=== PATIENT | male | born 1955 | race Two or more races ===

== ENCOUNTER 2024-11-19 19:25 | Inpatient (IN) | payer OTHER ==
[~2024-11-19] VITALS: Ht 177.8 cm; Wt 141.5 kg
--- NOTE | 2024-11-19 19:58 | ED.PDOC ---
History of Present Illness HPI Comments 69-year-old male who came to ER for generalized weakness. History of hypertension, diabetes, end-stage renal disease, on dialysis every Friday, Friday, and Friday. Patient has been generally weak since 5:00 a.m. slid off twice at his bed, and has to be assisted up again. He denies any pain. Patient also complaining of constipation for the past 4 days. On scene patient is saturating 91% on room air, blood sugar of 179, with a blood pressure 164/69 mm Hg. Patient was unable to get his dialysis today because he felt extremely weak. 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 Allergies: Coded Allergies: NO KNOWN ALLERGIES (Unverified , 11/19/24) Information Source: Patient, Emergency Med Personnel Mode of Arrival: EMS Severity: Moderate Timing: Days Duration: Intermittent Past Medical History PAST MEDICAL HISTORY: DM, ESRD, HTN Past Medical History (Other): Dialysis Friday Surgical History: Denies all surgeries Family History Family History: Reviewed,noncontributory to illness Social History Smoker: Non-Smoker Alcohol: Denies ETOH Use Drugs: Denies Drug Use Lives In: Home Constitutional: reports: weakness; denies: chills, diaphoresis, fatigue, fever, malaise, sweats, others EENTM: denies: blurred vision, double vision, ear bleeding, ear discharge, ear drainage, ear pain, ear ringing, eye pain, eye redness, hearing loss, mouth pain, mouth swelling, nasal discharge, nose bleeding, nose congestion, nose pain, photophobia, tearing, throat pain, throat swelling, voice changes, others Respiratory: denies: cough, hemoptysis, orthopnea, SOB at rest, shortness of breath, SOB with excertion, stridor, wheezing, others Cardiovascular: denies: chest pain, dizzy spells, diaphoresis, Dyspnea on exertion, edema, irregular heart beat, left arm pain, lightheadedness, palpitations, PND, syncope, others Gastrointestinal: reports: constipated; denies: abdomen distended, abdominal pain, blood streaked bowels, diarrhea, dysphagia, difficulty swallowing, hematemesis, melena, nausea, poor appetite, poor fluid intake, rectal bleeding, rectal pain, vomiting, others Genitourinary: denies: burning, dysuria, flank pain, frequency, hematuria, incontinence, penile discharge, penile sore, pain, testicle pain, testicle swelling, urgency, others Neurological: denies: dizziness, fainting, headache, left sided numbness, left sided weakness, numbness, paresthesia, pre-existing deficit, right sided numbness, right sided weakness, seizure, speech problems, tingling, tremors, weakness, others Musculoskeletal: denies: back pain, gout, joint pain, joint swelling, muscle pain, muscle stiffness, neck pain, others Integumetry: denies: bruises, change in color, change in hair/nails, dryness, laceration, lesions, lumps, rash, wounds, others Allergic/Immunocompromised: denies: Difficulty Healing, Frequent Infections, Hives, Itching, others Hematologic/Lymphatic: denies: anemia, blood clots, easy bleeding, easy bruising, swollen glands, others Endocrine: denies: excessive hunger, excessive sweating, excessive thirst, excessive urination, flushing, intolerance to cold, intolerance to heat, unexplained weight gain, unexplained weight loss, others Psychiatric: denies: anxiety, bipolar disorder, depression, hopeless, panic disorder, schizophrenia, sleepless, suicidal, others Physical Exam General Appearance: No Apparent Distress, Normal HEENT: Normal ENT Inspection, Pharynx Normal, TMs Normal Neck: Full Range of Motion, Non-Tender, Normal, Normal Inspection Respiratory: Chest Non-Tender, Lungs Clear, No Accessory Muscle Use, No Respiratory Distress, Normal Breath Sounds Cardiovascular: No Edema, No JVD, No Murmur, No Gallop, Normal Peripheral Pulses, Regular Rate/Rhythm Breast Exam: Deferred Gastrointestinal: No Organomegaly, Non Tender, No Pulsatile Mass, Normal Bowel Sounds, Soft Genitalia: Deferred Pelvic: Deferred Rectal: Deferred Extremities: No calf tenderness, Normal capillary refill, Normal inspection, Normal range of motion, Non-tender, No pedal edema Musculoskeletal : Apperance: Normal Neurologic: Alert, manager travel II-XII nml as Tested, No Motor Deficits, Normal Affect, Normal Mood, No Sensory Deficits Cerebellar Function: Normal Reflexes: Normal Skin: Dry, Normal Color, Warm Lymphatic: No Adenopathy Was a procedure done? Was a procedure done?: No Differential Dx Considerations may include: Anemia, electrolyte imbalance, syncope, weakness, dehydration X-Ray, Labs, Meds, VS Vital Signs Date Time Temp Pulse Resp B/P (MAP) Pulse Ox O2 Delivery O2 Flow Rate FiO2 11/19/24 20:45 100.6 77 16 121/62 (81) 99 100.6 11/19/24 20:45 Nasal Cannula* 2 28 11/19/24 19:38 100.6 77 18 164/69 (100) 100.6 Lab Test 11/19/24 20:10 Range/Units White Blood Count 11.7 H 4.4-10.8 10^3/uL Red Blood Count 3.25 L 4.5-5.90 10^6/uL Hemoglobin 11.0 L 13.5-17.5 g/dL Hematocrit 32.7 L 41.0-53.0 % Mean Corpuscular Volume 100.6 H 80.0-100.0 fL Mean Corpuscular Hemoglobin 33.7 H 28.0-32.0 pg Mean Corpuscular Hemoglobin Concent 33.5 32.0-36.0 g/dL Red Cell Distribution Width 15.4 H 11.8-14.3 % Platelet Count 109 L 140-450 10^3/uL Mean Platelet Volume 7.8 6.9-10.8 fL Neutrophils (%) (Auto) 87.2 H 37.0-80.0 % Lymphocytes (%) (Auto) 6.4 L 10.0-50.0 % Monocytes (%) (Auto) 5.6 0.0-12.0 % Eosinophils (%) (Auto) 0.1 0.0-7.0 % Basophils (%) (Auto) 0.7 0.0-2.0 % Neutrophils # (Auto) 10.2 H 1.6-8.6 10 ^3/uL Lymphocytes # (Auto) 0.8 0.4-5.4 10 ^3/uL Monocytes # (Auto) 0.7 0-1.3 10 ^3/uL Eosinophils # (Auto) 0 0-0.8 10 ^3/uL Basophils # (Auto) 0.1 0-0.2 10 ^3/uL Nucleated Red Blood Cells 0.0 % Sodium Level 135 L 136-145 mmol/L Potassium Level 5.4 H 3.5-5.1 mmol/L Chloride Level 94 L 98-107 mmol/L Carbon Dioxide Level 28 20-31 mmol/L Anion Gap 13 5-15 Blood Urea Nitrogen 65 H 9-23 mg/dL Creatinine 12.41 *H 0.700-1.30 mg/dL Glomerular Filtration Rate Calc 4 >90 mL/min BUN/Creatinine Ratio 5.2 L 10.0-20.0 Serum Glucose 204 H 74-106 mg/dL Lactic Acid Level 2.1 *H 0.4-2.0 mmol/L Calcium Level 8.8 8.7-10.4 mg/dL Magnesium Level 2.5 1.6-2.6 mg/dL Total Bilirubin 0.9 0.2-1.0 mg/dL Aspartate Amino Transferase (AST) 9 L 13-40 U/L Alanine Aminotransferase (ALT) 10 7-40 U/L Alkaline Phosphatase 61 46-116 U/L Total Protein 7.0 5.7-8.2 g/dL Albumin 4.2 3.2-4.8 g/dL Lipase 24 12-53 U/L EXAM: XY CHEST PORTABLE TECHNIQUE: Single frontal chest radiograph CLINICAL HISTORY: weakness , SOB COMPARISON: None Findings/Impression: Frontal chest radiograph demonstrates no acute osseous or superficial soft tissue abnormalities. The trachea is midline. The cardiac silhouette and mediastinum are within normal limits. Mild bibasilar atelectasis. No pneumothorax, pleural effusions, or consolidations. Time of 1ST Reevaluation: 19:51 Reevaluation 1ST: Unchanged Patient Education/Counseling: Diagnosis, Treatment Family Education/Counseling: No Family Present Sepsis Sepsis Reasesment Focused Exam Sepsis focused exam: focus exam completed (In the initial resuscitation at least 30 mL/kg of IV crystalloid fluid was NOT given within the first 3 hr due to concerns of fluid overload), time: (2129) Departure 1 Departure Time of Disposition: 22:27 Impression: Primary Impression: Generalized weakness Additional Impressions: ESRD (end stage renal disease) on dialysis Fluid overload Disposition: ADMITTED INPATIENT Admit to: Med Surg Condition: Guarded Critical Care Note Critical Care Time?: Yes (35 min-critical care time only) Critical care comment: Total critical care time: Approximately 36 minutes Due to a high probability of clinically significant, life threatening deterioration, the patient required my highest level of preparedness to intervene emergently and I personally spent this critical care time directly and personally managing the patient. This critical care time included obtaining a history; examining the patient; pulse oximetry; ordering and review of studies; arranging urgent treatment with development of a management plan; evaluation of patient's response to treatment; frequent reassessment; and, discussions with other providers. This critical care time was performed to assess and manage the high probability of imminent, life-threatening deterioration that could result in multi-organ failure. It was exclusive of separately billable procedures and treating other patients. Stability Stability form required: No Heart Score Heart Score: Heart Score Response (Comments) Value History N/A 0 EKG N/A 0 Age N/A 0 Risk Factors N/A 0 Troponin N/A 0 Total 0 I personally scribed for JORGE ANDUJAR MD ([email or web address]) on 11/19/24 at 19:58. Electronically submitted by Issac Macias ([email or web address]). I personally scribed for JORGE ANDUJAR MD ([email or web address]) on 11/19/24 at 21:14. Electronically submitted by Issac Macias ([email or web address]). JORGE ANDUJAR MD Nov 19, 2024 19:58
[2024-11-19 20:33] LABS: Basophils # (auto) 0.1 10 ^3/uL (0-0.2); Basophils % (auto) 0.7 % (0.0-2.0); Eosinophils # (auto) 0 10 ^3/uL (0-0.8); Eosinophils % (auto) 0.1 % (0.0-7.0); Hematocrit 32.7 % (41.0-53.0); Lymphocytes # (auto) 0.8 10 ^3/uL (0.4-5.4); Lymphocytes % (auto) 6.4 % (10.0-50.0); Mean Corpuscular Hemoglobin 33.7 pg (28.0-32.0); Mean Corpuscular Hgb Conc. 33.5 g/dL (32.0-36.0); Mean Corpuscular Volume 100.6 fL (80.0-100.0); Monocytes # (auto) 0.7 10 ^3/uL (0-1.3); Monocytes % (auto) 5.6 % (0.0-12.0); Neutrophils # (auto) 10.2 10 ^3/uL (1.6-8.6); Neutrophils % (auto) 87.2 % (37.0-80.0); Platelet Count (auto) 109 10^3/uL (140-450); Red Blood Cells 3.25 10^6/uL (4.5-5.90); Red Cell Distribution Width 15.4 % (11.8-14.3); White Blood Cell 11.7 10^3/uL (4.4-10.8)
--- NOTE | 2024-11-19 20:36 | DVH ---
EXAM: XY CHEST PORTABLE TECHNIQUE: Single frontal chest radiograph CLINICAL HISTORY: weakness , SOB COMPARISON: None Findings/Impression: Frontal chest radiograph demonstrates no acute osseous or superficial soft tissue abnormalities. The trachea is midline. The cardiac silhouette and mediastinum are within normal limits. Mild bibasilar atelectasis. No pneumothorax, pleural effusions, or consolidations.
[2024-11-19 20:45] LABS: Alanine Aminotransferase 10 U/L (7-40); Albumin 4.2 g/dL (3.2-4.8); Alkaline Phosphatase 61 U/L (46-116); Anion Gap 13 (5-15); BUN/Creatinine Ratio 5.2 (10.0-20.0); Bilirubin, Total 0.9 mg/dL (0.2-1.0); Calcium 8.8 mg/dL (8.7-10.4); Carbon Dioxide 28 mmol/L (20-31); Lipase 24 U/L (12-53); Magnesium 2.5 mg/dL (1.6-2.6)
[2024-11-19 21:07] LABS: Aspartate Aminotransferase 9 U/L (13-40); Blood Urea Nitrogen 65 mg/dL (9-23); Chloride 94 mmol/L (98-107); Glucose 204 mg/dL (74-106); Lactic Acid w/Reflex 2.1 mmol/L (0.4-2.0); Potassium 5.4 mmol/L (3.5-5.1); Sodium 135 mmol/L (136-145)
[2024-11-19] MEDS: PIPERACILLIN-TAZOB 3.375GM 100 ML IV ONE (22:41)
[2024-11-20] MEDS ORDERED: MAALOX PLUS or MAALOX 30 ML PO PRN (01:00)
[2024-11-20] MEDS ORDERED: TEMAZEPAM 15 MG CAP PO PRN (01:00)
[2024-11-20] MEDS ORDERED: DEXTROSE (50%) 50ML SYRG IV PRN (01:00)
[2024-11-20] MEDS ORDERED: ONDANSETRON HCL 4 MG/2 ML VIAL IV PRN (01:00)
--- NOTE | 2024-11-20 01:04 | DVHHP2 ---
History of Present Illness Reason for Visit: weakness History of Present Illness 69-year-old male with a past medical history of diabetes hypertension end-stage renal disease comes to the ED for to stated weakness patient was supposed to have dialysis today but steadily could not go to dialysis due to feeling too weak to go came to the ED for further evaluation and management Renal/: Chronic renal insuff Review of Systems Constitutional: Yes: Fever, Weakness; No: Chills, Sweats, Malaise, Other Eyes: No: Pain, Vision change, Conjunctivae inflammation, Eyelid inflammation, Other, Redness ENT: No: Ear pain, Ear discharge, Nose pain, Nose discharge, Nose congestion, Mouth pain, Mouth swelling, Throat pain, Throat swelling, Other Gastrointestinal: No: Nausea, Vomiting, Abdominal Pain, Diarrhea, Constipation, Melena, Hematochezia, Other Genitourinary: No Dysuria, No Frequency, No Incontinence, No Hematuria, No Retention, No Other Musculoskeletal: No: other, neck pain, shoulder pain, arm pain, back pain, hand pain, leg pain, foot pain Skin: No: Rash, Lesions, Jaundice, Bruising, Other Neurological: Weakness; No: Numbness, Incoordination, Change in speech, Confusion, Seizures, Other Allergies: Coded Allergies: NO KNOWN ALLERGIES (Unverified , 11/19/24) Exam Vital Signs Vital Signs Date Time Temp Pulse Resp B/P (MAP) Pulse Ox O2 Delivery O2 Flow Rate FiO2 11/20/24 00:00 98.6 75 16 143/51 (81) 98 98.6 11/19/24 20:45 Nasal Cannula* 2 28 Exam General Appearance: No Apparent Distress, Normal HEENT: Normal ENT Inspection, Pharynx Normal, TMs Normal Neck: Full Range of Motion, Non-Tender, Normal, Normal Inspection Respiratory: Chest Non-Tender, Lungs Clear, No Accessory Muscle Use, No Respiratory Distress, Normal Breath Sounds Cardiovascular: No Edema, No JVD, No Murmur, No Gallop, Normal Peripheral Pulses, Regular Rate/Rhythm Breast Exam: Deferred Gastrointestinal: No Organomegaly, Non Tender, No Pulsatile Mass, Normal Bowel Sounds, Soft Genitalia: Deferred Pelvic: Deferred Rectal: Deferred Extremities: No calf tenderness, Normal capillary refill, Normal inspection, Normal range of motion, Non-tender, No pedal edema Musculoskeletal : Apperance: Normal Neurologic: Alert, 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, No Motor Deficits, Normal Affect, Normal Mood, No Sensory Deficits Cerebellar Function: Normal Reflexes: Normal Skin: Dry, Normal Color, Warm Lymphatic: No Adenopathy Labs/Xrays Labs Test 11/19/24 22:33 11/19/24 20:10 Range/Units Lactic Acid Level 2.0 0.4-2.0 mmol/L White Blood Count 11.7 H 4.4-10.8 10^3/uL Red Blood Count 3.25 L 4.5-5.90 10^6/uL Hemoglobin 11.0 L 13.5-17.5 g/dL Hematocrit 32.7 L 41.0-53.0 % Mean Corpuscular Volume 100.6 H 80.0-100.0 fL Mean Corpuscular Hemoglobin 33.7 H 28.0-32.0 pg Mean Corpuscular Hemoglobin Concent 33.5 32.0-36.0 g/dL Red Cell Distribution Width 15.4 H 11.8-14.3 % Platelet Count 109 L 140-450 10^3/uL Mean Platelet Volume 7.8 6.9-10.8 fL Neutrophils (%) (Auto) 87.2 H 37.0-80.0 % Lymphocytes (%) (Auto) 6.4 L 10.0-50.0 % Monocytes (%) (Auto) 5.6 0.0-12.0 % Eosinophils (%) (Auto) 0.1 0.0-7.0 % Basophils (%) (Auto) 0.7 0.0-2.0 % Neutrophils # (Auto) 10.2 H 1.6-8.6 10 ^3/uL Lymphocytes # (Auto) 0.8 0.4-5.4 10 ^3/uL Monocytes # (Auto) 0.7 0-1.3 10 ^3/uL Eosinophils # (Auto) 0 0-0.8 10 ^3/uL Basophils # (Auto) 0.1 0-0.2 10 ^3/uL Nucleated Red Blood Cells 0.0 % Sodium Level 135 L 136-145 mmol/L Potassium Level 5.4 H 3.5-5.1 mmol/L Chloride Level 94 L 98-107 mmol/L Carbon Dioxide Level 28 20-31 mmol/L Anion Gap 13 5-15 Blood Urea Nitrogen 65 H 9-23 mg/dL Creatinine 12.41 *H 0.700-1.30 mg/dL Glomerular Filtration Rate Calc 4 >90 mL/min BUN/Creatinine Ratio 5.2 L 10.0-20.0 Serum Glucose 204 H 74-106 mg/dL Calcium Level 8.8 8.7-10.4 mg/dL Magnesium Level 2.5 1.6-2.6 mg/dL Total Bilirubin 0.9 0.2-1.0 mg/dL Aspartate Amino Transferase (AST) 9 L 13-40 U/L Alanine Aminotransferase (ALT) 10 7-40 U/L Alkaline Phosphatase 61 46-116 U/L Total Protein 7.0 5.7-8.2 g/dL Albumin 4.2 3.2-4.8 g/dL Lipase 24 12-53 U/L Assessment/Plan Assessment/Plan admitted to telemetry generalized weakness ESRD with missed dialysis renal evaluation elevated potassium we will need HD elevated white count history of diabetes with elevated glucose Plan discussed with: Patient My Orders Orders - SHARATH SANCHEZ MD Procedure Category Date Status Time *[facility] CONS 11/20/24 Transmitted -[place] 00:47 Admit ADMIT 11/20/24 Transmitted 00:47 Code Status CODE 11/20/24 Transmitted 00:47 Vital Signs [facility] 11/20/24 In Process 00:47 Review Orders With [facility] 11/20/24 In Process Adm. 00:47 Consistent DIET 11/20/24 Transmitted Carb(Ccho)Diabetes Breakfast Lorazepam Tablet [facility] 11/20/24 Logged (Ativan Tablet) 01:00 Alum & Mag PHA 11/20/24 Logged Hydrox-Simethicone 01:00 Docusate Sodium PHA 11/20/24 Logged Capsule (Colace 01:00 Acetaminophen Tablet PHA 11/20/24 Logged (Tylenol Tablet) 01:00 Temazepam (Restoril) PHA 11/20/24 Logged 01:00 Notify Of Changes [facility] 11/20/24 In Process From Base 00:47 Advance Directive [facility] 11/20/24 In Process 00:47 Basic Metabolic Panel LAB 11/20/24 Logged 06:00 Complete Blood Count LAB 11/20/24 Logged 06:00 Patient Condition ORDERS 11/20/24 Transmitted 00:47 Allergies [facility] 11/20/24 In Process 00:47 Ondansetron Hcl PHA 11/20/24 Logged (Zofran) 01:00 Morphine Sulfate PHA 11/20/24 Logged Injection 01:00 Notify Of Changes [facility] 11/20/24 In Process From Base 00:47 Work Station Support Specialist For [facility]A 11/20/24 In Process 24 Hours 00:47 Oxygen By Nasal RT 11/20/24 Transmitted Cannula 00:47 Glucose Blood PHA 11/20/24 Logged (Accu-Chek Comfort 07:00 Insulin R (Human) PHA 11/20/24 Logged (Insulin R) 22:00 Insulin R (Human) PHA 11/20/24 Logged (Insulin R) 07:00 Dextrose 50% Syringe PHA 11/20/24 Transmitted 01:00 Zosyn Extended PHA 11/20/24 Transmitted Infusion 06:00 Date of Service: Nov 20, 2024 Billing Provider: SHARATH SANCHEZ MD Common Visit Codes: [id number] INP/OBS CARE (HIGH) SHARATH SANCHEZ MD Nov 20, 2024 01:04
[2024-11-20] MEDS ORDERED: PIPERACILLIN-TAZOB 3.375GM 100 ML IV SCH (06:00)
[2024-11-20 06:36] LABS: Anion Gap 14 (5-15); Carbon Dioxide 28 mmol/L (20-31)
[2024-11-20 06:38] LABS: Hematocrit 32.6 % (41.0-53.0); Hemoglobin 10.8 g/dL (13.5-17.5); Mean Corpuscular Hemoglobin 33.2 pg (28.0-32.0); Mean Corpuscular Hgb Conc. 33.2 g/dL (32.0-36.0); Mean Corpuscular Volume 99.8 fL (80.0-100.0); Platelet Count (auto) 95 10^3/uL (140-450); Red Blood Cells 3.27 10^6/uL (4.5-5.90); Red Cell Distribution Width 15.4 % (11.8-14.3); White Blood Cell 14.4 10^3/uL (4.4-10.8)
[2024-11-20 06:42] LABS: BUN/Creatinine Ratio 5.7 (10.0-20.0)
[2024-11-20 06:54] LABS: Calcium 8.7 mg/dL (8.7-10.4); Chloride 92 mmol/L (98-107); Sodium 134 mmol/L (136-145)
[2024-11-20 06:56] LABS: Blood Urea Nitrogen 75 mg/dL (9-23); Glucose 211 mg/dL (74-106); Potassium 5.6 mmol/L (3.5-5.1)
[2024-11-20 07:00] LABS: Basophils % (manual) 0 (0.0-2.0); Blast Cells 0; Eosinophils % (manual) 0 (0-7); Metamyelocytes % 0; Myelocytes % 0; Promyelocytes % 0; Reactive Lymphocytes 0
[2024-11-20] MEDS: ACCU-CHEK COMFORT CURVE STRIP VI SCH (07:06)
[2024-11-20] MEDS: InsuLIN REG 1unit/0.01ml Soln (100units/ml) SC SCH ×2 (07:09→22:29)
[2024-11-20] MEDS: SODIUM ZIRCONIUM CYCL 10 GM PAK PO ONE (07:14)
[2024-11-20 08:00] VITALS: PULSE 69; RESP 21; O2SAT 93
[2024-11-20] MEDS: ACETAMINOPHEN 325 MG TAB PO PRN (08:21)
[2024-11-20 08:56] LABS: Band Neutrophils % (manual) 12; Lymphocytes % (manual) 11 (10.0-50.0); Monocytes % (manual) 6 (0-12); Platelet Estimate Decreased
--- NOTE | 2024-11-20 13:05 | DVHINCON2 ---
DATE OF CONSULTATION: 11/20/2024 CONSULTING PHYSICIAN: Jorge L Goldman MD REASON FOR CONSULTATION: Manage dialysis therapy. HISTORY OF PRESENT ILLNESS: The patient is a 69-year-old gentleman who is one of our chronic dialysis patients who came to the hospital after having a couple of falls at home. He says that he was feeling very weak, actually slipped out of his bed, could not really stand up, and missed dialysis treatment yesterday. He denies any chest pain or other symptoms. He is feeling still quite weak but he is mostly at his baseline now. Because he missed his dialysis, blood work in the Emergency Room showed that he was mildly hyperkalemic so I am being consulted to handle his dialysis therapy while he is here. REVIEW OF SYSTEMS: Otherwise unremarkable. PAST MEDICAL HISTORY: Significant for longstanding diabetes, hypertension, obesity, end-stage renal disease, anemia, hyperparathyroidism, hyperlipidemia. SOCIAL HISTORY: He denies smoking cigarettes, drinking alcohol, or using illicit drugs. MEDICATIONS IN THE HOSPITAL: Include insulin, Zosyn, morphine, Zofran, , acetaminophen, and docusate. PHYSICAL EXAMINATION: VITAL SIGNS: Blood pressure is 106/62. Heart rate is 64. Respirations 20. Temperature 99. Apparently, last night, he had a fever of 101.5. GENERAL: The patient is an elderly gentleman who appears to be chronically ill in no acute distress. Alert and oriented x 3. HEENT: Unremarkable. Oral mucosa is pink and moist. NECK: No jugular venous distention or palpable thyroid lymphadenopathy. LUNGS: Diminished entry at the base with a few scattered rhonchi. CARDIOVASCULAR: Regular rate with 1/6 systolic murmur. ABDOMEN: Soft and nontender. Bowel sounds are normal intensity and frequency. EXTREMITIES: No clubbing or cyanosis. There is no edema in the legs. LABORATORY FINDINGS: Sodium 134, potassium 5.6, bicarbonate 28, BUN 75, creatinine 13. Hemoglobin is 10.8, white blood cell count 14,000. IMAGING DATA: Chest x-ray shows no acute findings. No pneumothorax or infiltrates. ASSESSMENT AND PLAN: * End-stage renal disease . * Hyperkalemia. * Controlled hypertension. * Obesity. * Rule out infection. The patient came with a fever and has an elevated white blood cell count. The plan is to give him dialysis today with a low-potassium bath. We will remove only 2 liters of fluid. He should receive intravenous empiric antibiotics and we should obtain blood cultures and urine cultures. I will follow him closely. Thank you for the consultation. MD OLYA Garber/JAMES/SANFORD TID: [id number] RECEIPT: [id number]
[2024-11-20 13:25] VITALS: BP 110/65; PULSE 94; RESP 18; TEMP 99.2; O2SAT 95
[2024-11-20 13:26] VITALS: RESP 18
[2024-11-20] MEDS: PIPERACILLIN-TAZOB 2.25GM 50 ML IV SCH (14:05)
--- NOTE | 2024-11-20 14:40 | DVHPN2 ---
Reviewed: Care Plan, H&P, Labs, Medications, Previous Orders, Radiology Changes from previous H/P or p: No Changes Eyes: No Pain, No Vision change, No Conjunctivae inflammation, No Eyelid inflammation, No Other, No Redness ENT: No Ear pain, No Ear discharge, No Nose pain, No Nose discharge, No Nose congestion, No Mouth pain, No Mouth swelling, No Throat pain, No Throat swelling, No Other Gastrointestinal: No Nausea, No Vomiting, No Abdominal Pain, No Diarrhea, No Constipation, No Melena, No Hematochezia, No Other Genitourinary: No Dysuria, No Frequency, No Incontinence, No Hematuria, No Retention, No Other Musculoskeletal: No other, No neck pain, No shoulder pain, No arm pain, No back pain, No hand pain, No leg pain, No foot pain Skin: No Rash, No Lesions, No Jaundice, No Bruising, No Other Objective Vitals Vital Signs Date Time Temp Pulse Resp B/P (MAP) Pulse Ox O2 Delivery O2 Flow Rate FiO2 11/20/24 13:26 18 Nasal Cannula* 2 28 11/20/24 12:00 67 116/57 (76) 94 11/20/24 10:00 99.0 99.0 Intake/Output Intake and Output 11/20/24 07:00 Intake Total 100 ml Balance 100 ml Intake IV Total 100 ml Medications Current Medications Medications Dose Ordered Sig/Carmela Route Start Time Stop Time Status Last Admin Dose Admin Lorazepam 0.5 mg Q6HP PRN PO 11/20/24 01:00 Al Hydrox/Mg Hydrox/Simethicone 30 ml Q6HP PRN PO 11/20/24 01:00 Docusate Sodium 100 mg BIDPRN PRN PO 11/20/24 01:00 Acetaminophen 650 mg Q6HP PRN PO 11/20/24 01:00 11/20/24 08:21 650 MG Temazepam 15 mg QHSP PRN PO 11/20/24 01:00 Ondansetron HCl 4 mg Q4HP PRN IV 11/20/24 01:00 Morphine Sulfate 1 mg Q4HPRN PRN IV 11/20/24 01:00 Diagnostic Test (Pha) 1 strip ACHS 11/20/24 07:00 11/20/24 11:30 1 STRIP Insulin Human Regular HS SC 11/20/24 22:00 Insulin Human Regular AC SC 11/20/24 07:00 11/20/24 12:56 3 UNITS Dextrose 50 ml UD PRN IV 11/20/24 01:00 Piperacillin Sod/ Tazobactam Sod 100 ml @ 100 mls/hr Q8HR IV 11/20/24 06:00 UNV Piperacillin Sod/ Tazobactam Sod 50 ml @ 100 mls/hr Q8HR IV 11/20/24 14:00 11/20/24 14:05 100 MLS/HR Laboratory Results Laboratory Tests 11/20/24 05:59 Chemistry Test 11/19/24 20:10 11/20/24 05:59 Albumin 4.2 g/dL (3.2-4.8) Calcium Level 8.8 mg/dL (8.7-10.4) 8.7 mg/dL (8.7-10.4) Magnesium Level 2.5 mg/dL (1.6-2.6) Total Protein 7.0 g/dL (5.7-8.2) Lipid panel Test 11/19/24 20:10 Lipase 24 U/L (12-53) LFT Test 11/19/24 20:10 Alanine Aminotransferase (ALT) 10 U/L (7-40) Alkaline Phosphatase 61 U/L (46-116) Aspartate Amino Transferase (AST) 9 U/L (13-40) L Total Bilirubin 0.9 mg/dL (0.2-1.0) Labs and/or images reviewed: Labs reviewed by me, Image(s) reviewed by me Assessment/Plan Assessment/Plan Sepsis with the elevated white count and temperature: Continue Zosyn: Blood cultures flu test COVID test ESRD on hemodialysis: Consult by Dr. Morales appreciated Acute hyperkalemia Hypertension Obesity Moderate malnutrition Patient not stable for transfer to [place] Time spent 70 minutes Advanced care planning time 20 minutes Patient is full code Plan discussed with: Patient Date of Service: Nov 20, 2024 Billing Provider: STALIN MIGUEL MD Common Visit Codes: [id number] CARE 30-74 MIN STALIN MIGUEL MD Nov 20, 2024 14:40
[2024-11-20 16:22] LABS: COVID19 ANTIGEN SOFIA FIA NEGATIVE (NEGATIVE); Rapid Influenza A Negative (Negative); Rapid Influenza B Negative (Negative)
--- NOTE | 2024-11-20 16:22 | DVH ---
HISTORY: RULE OUT TOOTH ABSCESS TECHNIQUE: Nonenhanced axial images through the facial bones with coronal and sagittal MPR. COMPARISON: None Radiation Dose Information: CT Dose: CTDI volume is 66.97 mGy. Dose-length product is 1229.7 mGy*cm FINDINGS: Mandible: Subcutaneous edema lateral to the right mandibular ramus anterior right parotid. Maxilla: Streak artifact from dental fillings in the maxilla and mandible Pterygoid plates: Visualized bilaterally Zygomatic processes: Normal bilaterally. Zygomatic arches: Normal bilaterally Orbits: Normal bilaterally Sinuses: Mild mucosal thickening floor of the left maxillary sinus. Facial swelling: Mild soft tissue swelling over the right side of the face versus the left. IMPRESSION: 1. No acute facial fractures. 2. Slight increased soft tissue swelling over the right side of the face versus the left. 3. Subcutaneous edema lateral to the right right mandibular ramus with the edema extending into the right parotid. HS:Y Radiation optimization: All CT scans at this facility use at least one of these dose optimization tera hniques: automated exposure control mA and/or kV adjustment per patient size (includes targeted exam s where dose is matched to clinical indication) or iterative reconstruction.
[2024-11-20 17:00] VITALS: BP 139/53; PULSE 63; RESP 17; TEMP 99.5; O2SAT 94
[2024-11-20] MEDS: DOCUSATE SOD 100 MG CAP PO PRN (17:14)
[2024-11-20 20:00] VITALS: PULSE 66; PULSE 81; RESP 17; O2SAT 94
[2024-11-21] VITALS (7 sets, daily range): BP systolic 139–173; BP diastolic 68–95; PULSE 75–88; RESP 16–20; TEMP 98.3–100.6; O2SAT 90–99
[2024-11-21 08:47] LABS: Alanine Aminotransferase 33 U/L (7-40); Alkaline Phosphatase 56 U/L (46-116); Anion Gap 14 (5-15); Carbon Dioxide 27 mmol/L (20-31); Potassium 4.5 mmol/L (3.5-5.1); Total Protein 6.5 g/dL (5.7-8.2)
[2024-11-21 08:48] LABS: Albumin 3.8 g/dL (3.2-4.8); BUN/Creatinine Ratio 5.7 (10.0-20.0); Bilirubin, Total 0.5 mg/dL (0.2-1.0)
[2024-11-21 08:49] LABS: Basophils # (auto) 0 10 ^3/uL (0-0.2); Basophils % (auto) 0.2 % (0.0-2.0); Chloride 93 mmol/L (98-107); Eosinophils # (auto) 0 10 ^3/uL (0-0.8); Eosinophils % (auto) 0.1 % (0.0-7.0); Hematocrit 32.4 % (41.0-53.0); Hemoglobin 10.8 g/dL (13.5-17.5); Lymphocytes # (auto) 1.1 10 ^3/uL (0.4-5.4); Lymphocytes % (auto) 7.4 % (10.0-50.0); Mean Corpuscular Hemoglobin 33.2 pg (28.0-32.0); Mean Corpuscular Hgb Conc. 33.3 g/dL (32.0-36.0); Mean Corpuscular Volume 99.6 fL (80.0-100.0); Monocytes # (auto) 0.8 10 ^3/uL (0-1.3); Monocytes % (auto) 5.8 % (0.0-12.0); Neutrophils # (auto) 12.5 10 ^3/uL (1.6-8.6); Neutrophils % (auto) 86.5 % (37.0-80.0); Platelet Count (auto) 108 10^3/uL (140-450); Red Blood Cells 3.25 10^6/uL (4.5-5.90); Red Cell Distribution Width 15.6 % (11.8-14.3); Sodium 134 mmol/L (136-145); White Blood Cell 14.4 10^3/uL (4.4-10.8)
[2024-11-21 08:50] LABS: Aspartate Aminotransferase 152 U/L (13-40); Blood Urea Nitrogen 56 mg/dL (9-23); Glucose 189 mg/dL (74-106)
[2024-11-21 09:16] LABS: Platelet Estimate Decreased
--- NOTE | 2024-11-21 10:13 | DVHPN2 ---
Reviewed: Care Plan, H&P, Labs, Medications, Previous Orders, Radiology Changes from previous H/P or p: No Changes Eyes: No Pain, No Vision change, No Conjunctivae inflammation, No Eyelid inflammation, No Other, No Redness ENT: No Ear pain, No Ear discharge, No Nose pain, No Nose discharge, No Nose congestion, No Mouth pain, No Mouth swelling, No Throat pain, No Throat swelling, No Other Gastrointestinal: No Nausea, No Vomiting, No Abdominal Pain, No Diarrhea, No Constipation, No Melena, No Hematochezia, No Other Genitourinary: No Dysuria, No Frequency, No Incontinence, No Hematuria, No Retention, No Other Musculoskeletal: No other, No neck pain, No shoulder pain, No arm pain, No back pain, No hand pain, No leg pain, No foot pain Skin: No Rash, No Lesions, No Jaundice, No Bruising, No Other Objective Vitals Vital Signs Date Time Temp Pulse Resp B/P (MAP) Pulse Ox O2 Delivery O2 Flow Rate FiO2 11/21/24 09:00 100.6 87 18 139/76 (97) 90 100.6 11/21/24 09:00 Nasal Cannula* 2 28 Intake/Output Intake and Output 11/21/24 07:00 Intake Total 1400 ml Balance 1400 ml Intake Oral 1300 ml IV Total 100 ml # Voids 2 Medications Current Medications Medications Dose Ordered Sig/Carmela Route Start Time Stop Time Status Last Admin Dose Admin Lorazepam 0.5 mg Q6HP PRN PO 11/20/24 01:00 Al Hydrox/Mg Hydrox/Simethicone 30 ml Q6HP PRN PO 11/20/24 01:00 Docusate Sodium 100 mg BIDPRN PRN PO 11/20/24 01:00 11/20/24 23:02 100 MG Acetaminophen 650 mg Q6HP PRN PO 11/20/24 01:00 11/21/24 07:58 650 MG Temazepam 15 mg QHSP PRN PO 11/20/24 01:00 Ondansetron HCl 4 mg Q4HP PRN IV 11/20/24 01:00 Morphine Sulfate 1 mg Q4HPRN PRN IV 11/20/24 01:00 Diagnostic Test (Pha) 1 strip ACHS 11/20/24 07:00 11/21/24 07:00 1 STRIP Insulin Human Regular HS SC 11/20/24 22:00 11/20/24 22:29 2 UNITS Insulin Human Regular AC SC 11/20/24 07:00 11/21/24 06:33 3 UNITS Dextrose 50 ml UD PRN IV 11/20/24 01:00 Piperacillin Sod/ Tazobactam Sod 100 ml @ 100 mls/hr Q8HR IV 11/20/24 06:00 UNV Piperacillin Sod/ Tazobactam Sod 50 ml @ 100 mls/hr Q8HR IV 11/20/24 14:00 11/21/24 06:35 100 MLS/HR Laboratory Results Laboratory Tests 11/21/24 07:24 Chemistry Test 11/21/24 07:24 Albumin 3.8 g/dL (3.2-4.8) Calcium Level 9.0 mg/dL (8.7-10.4) Total Protein 6.5 g/dL (5.7-8.2) LFT Test 11/21/24 07:24 Alanine Aminotransferase (ALT) 33 U/L (7-40) Alkaline Phosphatase 56 U/L (46-116) Aspartate Amino Transferase (AST) 152 U/L (13-40) H Total Bilirubin 0.5 mg/dL (0.2-1.0) Microbiology Microbiology Date/Time Source Procedure Growth Status 11/19/24 20:10 Blood Blood Culture - Preliminary NO GROWTH AFTER 24 HOURS OF INCUBATION. Resulted Labs and/or images reviewed: Labs reviewed by me, Image(s) reviewed by me Assessment/Plan Assessment/Plan Sepsis secondary to cellulitis right side of the face: Maxillofacial CT negative for any fracture, Continue Zosyn: Blood cultures negative, flu test negative, COVID test negative ESRD on hemodialysis: Consult by Dr. Morales appreciated Acute hyperkalemia Hypertension Obesity Moderate malnutrition Patient not stable for transfer to [place] Time spent 50 minutes Urinalysis and urine cultures ordered Patient is full code Plan discussed with: Patient My Orders Orders - STALIN MIGUEL MD Procedure Category Date Status Time Blood Culture JESSICA 11/20/24 In Process 14:58 Complete Blood Count LAB 11/22/24 Verified 05:00 Complete Blood Count LAB 11/23/24 Verified 05:00 Comprehensive LAB 11/22/24 Verified Metabolic Panel 05:00 Comprehensive LAB 11/23/24 Verified Metabolic Panel 05:[address] 4/26/25 Resulted 15:11 Date of Service: Nov 21, 2024 Billing Provider: STALIN MIGUEL MD Common Visit Codes: [id number] INP/OBS CARE(HIGH) STALIN MIGUEL MD Nov 21, 2024 10:13
--- NOTE | 2024-11-21 12:32 | DVHPN2 ---
Progress Note - Dictate Date Seen: Nov 21, 2024 Has the PT tested + for MRSA If YES, has PT been informed?: No Medical Necessity Reason Pt with a Central, PICC or Fol: No Subjective Feels better after HD vital signs Vital Sign Date Time Temp Pulse Resp B/P (MAP) Pulse Ox O2 Delivery O2 Flow Rate FiO2 11/21/24 09:00 100.6 87 18 139/76 (97) 90 100.6 11/21/24 09:00 Nasal Cannula* 2 28 Total Intake and Output 11/20/24 11/20/24 11/21/24 15:00 23:00 07:00 Intake Total 220 ml 1005 ml 175 ml Balance 220 ml 1005 ml 175 ml medications Current Medications Medications Dose Ordered Sig/Carmela Route Start Time Stop Time Status Last Admin Dose Admin Lorazepam 0.5 mg Q6HP PRN PO 11/20/24 01:00 Al Hydrox/Mg Hydrox/Simethicone 30 ml Q6HP PRN PO 11/20/24 01:00 Docusate Sodium 100 mg BIDPRN PRN PO 11/20/24 01:00 11/20/24 23:02 100 MG Acetaminophen 650 mg Q6HP PRN PO 11/20/24 01:00 11/21/24 07:58 650 MG Temazepam 15 mg QHSP PRN PO 11/20/24 01:00 Ondansetron HCl 4 mg Q4HP PRN IV 11/20/24 01:00 Morphine Sulfate 1 mg Q4HPRN PRN IV 11/20/24 01:00 Diagnostic Test (Pha) 1 strip ACHS 11/20/24 07:00 11/21/24 11:28 1 STRIP Insulin Human Regular HS SC 11/20/24 22:00 11/20/24 22:29 2 UNITS Insulin Human Regular AC SC 11/20/24 07:00 11/21/24 11:30 3 UNITS Dextrose 50 ml UD PRN IV 11/20/24 01:00 Piperacillin Sod/ Tazobactam Sod 100 ml @ 100 mls/hr Q8HR IV 11/20/24 06:00 UNV Piperacillin Sod/ Tazobactam Sod 50 ml @ 100 mls/hr Q8HR IV 11/20/24 14:00 11/21/24 06:35 100 MLS/HR objective Alert and oriented x 3 NAD Lungs: CTA bilaterally CV: RR, no pericardial rub Abdomen: soft, non tender to palpatin, normal bowel sounds No leg edema' Neuro: WNL laboratory and microbiology Laboratory Tests 11/21/24 07:24 Test 11/21/24 07:24 Range/Units Serum Glucose 189 H 74-106 mg/dL Problem List 1. ESRD, had HD yesterday, stable. 2. Sepsis secondary to cellulitis right side of the face: Maxillofacial CT negative for any fracture, 3. Hyperkalemia resolved 4. Hypertension 5. Obesity Continue HD on MWF schedule Awaiting transfer to [facility] Dietary Evaluation Review Comments: 1) Continue stool softeners and laxatives PRN 2) Encourage optimal PO intake 3) Collect HbA1c 4) Refer to outpatient RD/CDCES for weight management 5) Continue to monitor I&O, labs, and skin integrity Expected Outcomes/Goals: 1) appetite and labs to improve 2) GI symptoms to resolve 3) f/u in 3-5 days Plan discussed with: Patient TRISTAN RICHARDSON MD Nov 21, 2024 12:32
[2024-11-21 19:46] LABS: Urine Bacteria None Seen /hpf (None Seen)
[2024-11-21 21:01] LABS: Urine Blood 2+ /uL (Negative); Urine Clarity Clear (Clear); Urine Color Yellow (Yellow); Urine Protein, UAD 1+ (Negative); Urine Specific Gravity 1.017 (1.001-1.035); Urine Squamous Epithelial Cell FEW /hpf (<5); Urine Urobilinogen Normal (Negative); Urine WBC 1 /HPF (0-3)
[2024-11-21] MEDS: LORazepam 0.5 MG TAB PO PRN (21:59)
[2024-11-21] MEDS: MORPHINE SULFATE INJ 2 MG/ml SYRG IV PRN (22:00)
[2024-11-22] VITALS (10 sets, daily range): BP systolic 136–174; BP diastolic 78–95; PULSE 80–92; RESP 16–21; TEMP 97.7–102.8; O2SAT 92–98
[2024-11-22 08:18] LABS: Basophils # (auto) 0.1 10 ^3/uL (0-0.2); Basophils % (auto) 0.5 % (0.0-2.0); Eosinophils # (auto) 0.2 10 ^3/uL (0-0.8); Eosinophils % (auto) 2.6 % (0.0-7.0); Hematocrit 34.3 % (41.0-53.0); Hemoglobin 11.3 g/dL (13.5-17.5); Lymphocytes % (auto) 10.2 % (10.0-50.0); Mean Corpuscular Hemoglobin 33.2 pg (28.0-32.0); Mean Corpuscular Hgb Conc. 32.9 g/dL (32.0-36.0); Mean Corpuscular Volume 101.1 fL (80.0-100.0); Monocytes # (auto) 0.6 10 ^3/uL (0-1.3); Monocytes % (auto) 6.7 % (0.0-12.0); Neutrophils # (auto) 7.7 10 ^3/uL (1.6-8.6); Nucleated Red Blood Cells % 0.2 %; Platelet Count (auto) 117 10^3/uL (140-450); Red Cell Distribution Width 15.5 % (11.8-14.3); White Blood Cell 9.7 10^3/uL (4.4-10.8)
[2024-11-22 08:47] LABS: Alkaline Phosphatase 63 U/L (46-116); Anion Gap 16 (5-15); Calcium 9.6 mg/dL (8.7-10.4); Carbon Dioxide 26 mmol/L (20-31); Total Protein 6.8 g/dL (5.7-8.2)
[2024-11-22 08:48] LABS: Albumin 3.9 g/dL (3.2-4.8); Bilirubin, Total 0.5 mg/dL (0.2-1.0)
[2024-11-22 08:53] LABS: BUN/Creatinine Ratio 6.6 (10.0-20.0)
[2024-11-22 08:55] LABS: Blood Urea Nitrogen 72 mg/dL (9-23); Chloride 89 mmol/L (98-107); Glucose 169 mg/dL (74-106); Potassium 5.4 mmol/L (3.5-5.1); Sodium 131 mmol/L (136-145)
[2024-11-22 08:56] LABS: Alanine Aminotransferase 35 U/L (7-40); Aspartate Aminotransferase 97 U/L (13-40)
--- NOTE | 2024-11-22 09:28 | DVHPN2 ---
Reviewed: Care Plan, H&P, Labs, Medications, Previous Orders, Radiology Changes from previous H/P or p: No Changes Eyes: No Pain, No Vision change, No Conjunctivae inflammation, No Eyelid inflammation, No Other, No Redness ENT: No Ear pain, No Ear discharge, No Nose pain, No Nose discharge, No Nose congestion, No Mouth pain, No Mouth swelling, No Throat pain, No Throat swelling, No Other Gastrointestinal: No Nausea, No Vomiting, No Abdominal Pain, No Diarrhea, No Constipation, No Melena, No Hematochezia, No Other Genitourinary: No Dysuria, No Frequency, No Incontinence, No Hematuria, No Retention, No Other Musculoskeletal: No other, No neck pain, No shoulder pain, No arm pain, No back pain, No hand pain, No leg pain, No foot pain Skin: No Rash, No Lesions, No Jaundice, No Bruising, No Other Objective Vitals Vital Signs Date Time Temp Pulse Resp B/P (MAP) Pulse Ox O2 Delivery O2 Flow Rate FiO2 11/22/24 05:00 97.8 83 19 167/87 (113) 95 97.8 11/21/24 20:00 Nasal Cannula* 2 28 Intake/Output Intake and Output 11/22/24 07:00 Intake Total 1170 ml Balance 1170 ml Intake Oral 1020 ml IV Total 150 ml # Voids 2 Medications Current Medications Medications Dose Ordered Sig/Carmela Route Start Time Stop Time Status Last Admin Dose Admin Lorazepam 0.5 mg Q6HP PRN PO 11/20/24 01:00 11/21/24 21:59 0.5 MG Al Hydrox/Mg Hydrox/Simethicone 30 ml Q6HP PRN PO 11/20/24 01:00 Docusate Sodium 100 mg BIDPRN PRN PO 11/20/24 01:00 11/21/24 21:59 100 MG Acetaminophen 650 mg Q6HP PRN PO 11/20/24 01:00 11/22/24 00:45 650 MG Temazepam 15 mg QHSP PRN PO 11/20/24 01:00 Ondansetron HCl 4 mg Q4HP PRN IV 11/20/24 01:00 Morphine Sulfate 1 mg Q4HPRN PRN IV 11/20/24 01:00 11/22/24 02:28 1 MG Diagnostic Test (Pha) 1 strip ACHS 11/20/24 07:00 11/22/24 06:29 1 STRIP Insulin Human Regular HS SC 11/20/24 22:00 11/21/24 21:57 3 UNITS Insulin Human Regular AC SC 11/20/24 07:00 11/22/24 06:28 3 UNITS Dextrose 50 ml UD PRN IV 11/20/24 01:00 Piperacillin Sod/ Tazobactam Sod 100 ml @ 100 mls/hr Q8HR IV 11/20/24 06:00 UNV Piperacillin Sod/ Tazobactam Sod 50 ml @ 100 mls/hr Q8HR IV 11/20/24 14:00 11/22/24 05:53 100 MLS/HR Laboratory Results Laboratory Tests 11/22/24 07:03 Chemistry Test 11/22/24 07:03 Albumin 3.9 g/dL (3.2-4.8) Calcium Level 9.6 mg/dL (8.7-10.4) Total Protein 6.8 g/dL (5.7-8.2) LFT Test 11/22/24 07:03 Alanine Aminotransferase (ALT) 35 U/L (7-40) Alkaline Phosphatase 63 U/L (46-116) Aspartate Amino Transferase (AST) 97 U/L (13-40) H Total Bilirubin 0.5 mg/dL (0.2-1.0) Urinalysis Test 11/21/24 19:30 Urine Color Yellow (Yellow) Urine Clarity Clear (Clear) Urine pH 7.0 (5.0-9.0) Urine Specific [place] 1.017 (1.001-1.035) Urine Protein 1+ (Negative) H Urine Ketones Negative (Negative) Urine Blood 2+ /uL (Negative) H Urine Nitrite Negative (Negative) Urine Bilirubin Negative (Negative) Urine Urobilinogen Normal mg/dL (Negative) Urine Leukocyte Esterase Negative /uL (Negative) Urine RBC 1 /hpf (0 - 3) Urine Microscopic WBC 1 /HPF (0-3) Urine Squamous Epithelial Cells Few /hpf (<5) Urine Bacteria None seen /hpf (None Seen) Urine Glucose Normal mg/dL (Normal) Microbiology Microbiology Date/Time Source Procedure Growth Status 11/21/24 19:30 Voided Urine Urine Culture - Preliminary Resulted 11/20/24 15:36 Blood Blood Culture - Preliminary NO GROWTH AFTER 24 HOURS OF INCUBATION. Resulted Labs and/or images reviewed: Labs reviewed by me, Image(s) reviewed by me Assessment/Plan Assessment/Plan Sepsis secondary to cellulitis right side of the face: Maxillofacial CT negative for any fracture or osteomyelitis, Continue Zosyn: Blood cultures negative, flu test negative, COVID test negative Fever 101.2, repeat blood cultures, continue Zosyn ESRD on hemodialysis: Consult by Dr. Carmen howe, patient getting dialysis today Acute hyperkalemia secondary to ESRD Hypertension Obesity Moderate malnutrition Patient not stable for transfer to [place] Time spent 65 minutes Urinalysis negative Patient is full code Hard of hearing Plan discussed with: Patient, Other (RN) My Orders Orders - STALIN MIGUEL MD Procedure Category Date Status Time Urine Bacterial JESSICA 11/21/24 In Process Culture 10:12 * Wound Consult CONS 11/21/24 Transmitted Blood Culture JESSICA 11/22/24 Verified 09:25 Date of Service: Nov 22, 2024 Billing Provider: STALIN MIGUEL MD Common Visit Codes: [id number] CARE 30-74 MIN STALIN MIGUEL MD Nov 22, 2024 09:28
[2024-11-22] MEDS: SODIUM CHL 0.9% 1000 ML BAG XX ONE (09:30)
--- NOTE | 2024-11-22 17:08 | DVH ---
CT brain without contrast CLINICAL INDICATION: Altered mental status following fall FINDINGS: The study was performed in a multidetector scanner. This study performed taking axial image s from the skull base up to the vertex. Both brain and bone windows are photographed. Dose lowering techniques have been used including automated exposure control and adjustment of mA and /or KV according to patient size. No intraparenchymal hemorrhage or edema. No extra-axial hemorrhage. Cortical sulcal markings are prominent There is no hydrocephalus. No midline shift. On bone windows no fractures of the skull. Mucosal thickening is present in the paranasal sinuses IMPRESSION: 1. No acute intracranial injury. Senescent changes Computed Tomographic Radiation Dosimetry Report: Total CTDI vol = 69.96mGy Total DLP = 1378.31mGy-cm All CT scans at this medical facility are performed using dose modulation techniques as appropriate t o a performed exam including the following: Automated exposure control was utilized; adjustment of th e MA and/or KvP according to patient size; and use of iterative reconstruction technique.
--- NOTE | 2024-11-22 20:01 | DVHPN2 ---
Progress Note - Dictate Date Seen: Nov 22, 2024 Has the PT tested + for MRSA If YES, has PT been informed?: No Medical Necessity Reason Pt with a Central, PICC or Fol: No vital signs Vital Sign Date Time Temp Pulse Resp B/P (MAP) Pulse Ox O2 Delivery O2 Flow Rate FiO2 11/22/24 17:05 92 20 136/78 11/22/24 17:00 98.7 92 98.7 11/22/24 08:00 Nasal Cannula* 2 28 Total Intake and Output 11/21/24 11/21/24 11/22/24 15:00 23:00 07:00 Intake Total 510 ml 510 ml 150 ml Balance 510 ml 510 ml 150 ml medications Current Medications Medications Dose Ordered Sig/Carmela Route Start Time Stop Time Status Last Admin Dose Admin Lorazepam 0.5 mg Q6HP PRN PO 11/20/24 01:00 11/21/24 21:59 0.5 MG Al Hydrox/Mg Hydrox/Simethicone 30 ml Q6HP PRN PO 11/20/24 01:00 Docusate Sodium 100 mg BIDPRN PRN PO 11/20/24 01:00 11/21/24 21:59 100 MG Acetaminophen 650 mg Q6HP PRN PO 11/20/24 01:00 11/22/24 00:45 650 MG Temazepam 15 mg QHSP PRN PO 11/20/24 01:00 Ondansetron HCl 4 mg Q4HP PRN IV 11/20/24 01:00 Morphine Sulfate 1 mg Q4HPRN PRN IV 11/20/24 01:00 11/22/24 16:32 1 MG Diagnostic Test (Pha) 1 strip ACHS 11/20/24 07:00 11/22/24 17:00 1 STRIP Insulin Human Regular HS SC 11/20/24 22:00 11/21/24 21:57 3 UNITS Insulin Human Regular AC SC 11/20/24 07:00 11/22/24 18:50 6 UNITS Dextrose 50 ml UD PRN IV 11/20/24 01:00 Piperacillin Sod/ Tazobactam Sod 100 ml @ 100 mls/hr Q8HR IV 11/20/24 06:00 UNV Piperacillin Sod/ Tazobactam Sod 50 ml @ 100 mls/hr Q8HR IV 11/20/24 14:00 11/22/24 15:18 100 MLS/HR objective Alert and oriented x 3 NAD Lungs: CTA bilaterally CV: RR, no pericardial rub Abdomen: soft, non tender to palpatin, normal bowel sounds No leg edema' Neuro: WNL laboratory and microbiology Laboratory Tests 11/22/24 07:03 Test 11/22/24 07:03 Range/Units Serum Glucose 169 H 74-106 mg/dL Assessment/Plan Problem List 1. ESRD on HD 2. Sepsis secondary to cellulitis right side of the face: Maxillofacial CT negative for any fracture, 3. Hyperkalemia resolved 4. Hypertension 5. Obesity Plan: Continue HD on MWF schedule s/p HD today Next HD on Friday Awaiting transfer to [facility] Dietary Evaluation Review Comments: 1) Continue stool softeners and laxatives PRN 2) Encourage optimal PO intake 3) Collect HbA1c 4) Refer to outpatient RD/[facility] for weight management 5) Continue to monitor I&O, labs, and skin integrity Expected Outcomes/Goals: 1) appetite and labs to improve 2) GI symptoms to resolve 3) f/u in 3-5 days Plan discussed with: Patient DAPHNEY RABAGO MD Nov 22, 2024 20:01
[2024-11-22] MEDS: EPOETIN ALFA-EPBX 4,000 UNIT/ML VIAL SC ONE (21:38)
[2024-11-23 01:00] VITALS: BP 136/78; PULSE 85; RESP 20; TEMP 98.2; O2SAT 96
[2024-11-23 05:00] VITALS: BP 156/91; PULSE 90; RESP 19; TEMP 98.6; O2SAT 95
[2024-11-23 08:00] VITALS: PULSE 88
[2024-11-23] MEDS: SODIUM CHL 0.9% 1000 ML BAG XX ONE (08:08)
--- NOTE | 2024-11-23 08:21 | DVHPN2 ---
Reviewed: Care Plan, H&P, Labs, Medications, Previous Orders, Radiology Changes from previous H/P or p: No Changes Eyes: No Pain, No Vision change, No Conjunctivae inflammation, No Eyelid inflammation, No Other, No Redness ENT: No Ear pain, No Ear discharge, No Nose pain, No Nose discharge, No Nose congestion, No Mouth pain, No Mouth swelling, No Throat pain, No Throat swelling, No Other Gastrointestinal: No Nausea, No Vomiting, No Abdominal Pain, No Diarrhea, No Constipation, No Melena, No Hematochezia, No Other Genitourinary: No Dysuria, No Frequency, No Incontinence, No Hematuria, No Retention, No Other Musculoskeletal: No other, No neck pain, No shoulder pain, No arm pain, No back pain, No hand pain, No leg pain, No foot pain Skin: No Rash, No Lesions, No Jaundice, No Bruising, No Other Objective Vitals Vital Signs Date Time Temp Pulse Resp B/P (MAP) Pulse Ox O2 Delivery O2 Flow Rate FiO2 11/23/24 05:00 98.6 90 19 156/91 (112) 95 98.6 11/22/24 20:00 Nasal Cannula* 2 28 Intake/Output Intake and Output 11/23/24 07:00 Intake Total 1500 ml Balance 1500 ml Intake Oral 1450 ml IV Total 50 ml # Voids 3 Medications Current Medications Medications Dose Ordered Sig/Carmela Route Start Time Stop Time Status Last Admin Dose Admin Lorazepam 0.5 mg Q6HP PRN PO 11/20/24 01:00 11/21/24 21:59 0.5 MG Al Hydrox/Mg Hydrox/Simethicone 30 ml Q6HP PRN PO 11/20/24 01:00 Docusate Sodium 100 mg BIDPRN PRN PO 11/20/24 01:00 11/21/24 21:59 100 MG Acetaminophen 650 mg Q6HP PRN PO 11/20/24 01:00 11/22/24 00:45 650 MG Temazepam 15 mg QHSP PRN PO 11/20/24 01:00 Ondansetron HCl 4 mg Q4HP PRN IV 11/20/24 01:00 Morphine Sulfate 1 mg Q4HPRN PRN IV 11/20/24 01:00 11/22/24 16:32 1 MG Diagnostic Test (Pha) 1 strip ACHS 11/20/24 07:00 11/23/24 06:09 1 STRIP Insulin Human Regular HS SC 11/20/24 22:00 11/22/24 22:02 4 UNITS Insulin Human Regular AC SC 11/20/24 07:00 11/23/24 06:24 3 UNITS Dextrose 50 ml UD PRN IV 11/20/24 01:00 Piperacillin Sod/ Tazobactam Sod 100 ml @ 100 mls/hr Q8HR IV 11/20/24 06:00 UNV Piperacillin Sod/ Tazobactam Sod 50 ml @ 100 mls/hr Q8HR IV 11/20/24 14:00 11/23/24 06:05 100 MLS/HR Laboratory Results Laboratory Tests 11/22/24 07:03 Urinalysis Test 11/21/24 19:30 Urine Color Yellow (Yellow) Urine Clarity Clear (Clear) Urine pH 7.0 (5.0-9.0) Urine Specific [place] 1.017 (1.001-1.035) Urine Protein 1+ (Negative) H Urine Ketones Negative (Negative) Urine Blood 2+ /uL (Negative) H Urine Nitrite Negative (Negative) Urine Bilirubin Negative (Negative) Urine Urobilinogen Normal mg/dL (Negative) Urine Leukocyte Esterase Negative /uL (Negative) Urine RBC 1 /hpf (0 - 3) Urine Microscopic WBC 1 /HPF (0-3) Urine Squamous Epithelial Cells Few /hpf (<5) Urine Bacteria None seen /hpf (None Seen) Urine Glucose Normal mg/dL (Normal) Microbiology Microbiology Date/Time Source Procedure Growth Status 11/21/24 19:30 Voided Urine Urine Culture - Preliminary Resulted 11/20/24 15:36 Blood Blood Culture - Preliminary NO GROWTH AFTER 48 HOURS OF INCUBATION. Resulted Labs and/or images reviewed: Labs reviewed by me, Image(s) reviewed by me Assessment/Plan Assessment/Plan Sepsis secondary to cellulitis right side of the face: Maxillofacial CT negative for any fracture or osteomyelitis, Continue Zosyn: Blood cultures negative, flu test negative, COVID test negative, continue Zosyn Blood cultures came negative urine cultures came negative ESRD on hemodialysis: Consult by Dr. Carmen howe, patient getting dialysis today Acute hyperkalemia secondary to ESRD Hypertension Obesity History of fall at home CT head negative Moderate malnutrition Hard of hearing Patient's Chantell requested transfer to [place] on 11/22/24 I called and spoke to her today on the phone and advised CT head negative cultures negative urine cultures negative and white count coming down and afebrile. She requested patient to be discharged home and not transferred to [place]. Discharged home Plan discussed with: Patient My Orders Orders - STALIN MIGUEL MD Procedure Category Date Status Time Blood Culture JESSICA 11/22/24 In Process 09:[address] 11/22/24 Resulted 14:58 Apply Barrier Cream VERA 11/22/24 In Process 11:11 Date of Service: Nov 23, 2024 Billing Provider: STALIN MIGUEL MD Common Visit Codes: [id number] INP/OBS CARE(HIGH) STALIN MIGUEL MD Nov 23, 2024 08:21
[2024-11-23] MEDS ORDERED: AUG875T PO (08:23)
[2024-11-23] MEDS ORDERED: TRAM-626 PO (08:23)
--- NOTE | 2024-11-23 08:30 | DVHDS2 ---
Discharge Summary Date of Admission Nov 20, 2024 at 00:47 Date of Discharge: Nov 23, 2024 Admitting Diagnosis Generalized weakness and altered mental status Wounds: None Labs/Diagnostic Data: Laboratory Results Test 11/22/24 21:56 11/22/24 07:03 11/21/24 19:30 11/21/24 07:24 POC Glucose 215 mg/dl (70-106) White Blood Count 9.7 10^3/uL (4.4-10.8) Red Blood Count 3.40 10^6/uL (4.5-5.90) Hemoglobin 11.3 g/dL (13.5-17.5) Hematocrit 34.3 % (41.0-53.0) Mean Corpuscular Volume 101.1 fL (80.0-100.0) Mean Corpuscular Hemoglobin 33.2 pg (28.0-32.0) Mean Corpuscular Hemoglobin Concent 32.9 g/dL (32.0-36.0) Red Cell Distribution Width 15.5 % (11.8-14.3) Platelet Count 117 10^3/uL (140-450) Mean Platelet Volume 8.6 fL (6.9-10.8) Neutrophils (%) (Auto) 80.0 % (37.0-80.0) Lymphocytes (%) (Auto) 10.2 % (10.0-50.0) Monocytes (%) (Auto) 6.7 % (0.0-12.0) Eosinophils (%) (Auto) 2.6 % (0.0-7.0) Basophils (%) (Auto) 0.5 % (0.0-2.0) Neutrophils # (Auto) 7.7 10 ^3/uL (1.6-8.6) Lymphocytes # (Auto) 1.0 10 ^3/uL (0.4-5.4) Monocytes # (Auto) 0.6 10 ^3/uL (0-1.3) Eosinophils # (Auto) 0.2 10 ^3/uL (0-0.8) Basophils # (Auto) 0.1 10 ^3/uL (0-0.2) Nucleated Red Blood Cells 0.2 % Sodium Level 131 mmol/L (136-145) Potassium Level 5.4 mmol/L (3.5-5.1) Chloride Level 89 mmol/L (98-107) Carbon Dioxide Level 26 mmol/L (20-31) Anion Gap 16 (5-15) Blood Urea Nitrogen 72 mg/dL (9-23) Creatinine 10.95 mg/dL (0.700-1.30) Glomerular Filtration Rate Calc 5 mL/min (>90) BUN/Creatinine Ratio 6.6 (10.0-20.0) Serum Glucose 169 mg/dL (74-106) Calcium Level 9.6 mg/dL (8.7-10.4) Total Bilirubin 0.5 mg/dL (0.2-1.0) Aspartate Amino Transferase (AST) 97 U/L (13-40) Alanine Aminotransferase (ALT) 35 U/L (7-40) Alkaline Phosphatase 63 U/L (46-116) Total Protein 6.8 g/dL (5.7-8.2) Albumin 3.9 g/dL (3.2-4.8) Urine Color Yellow (Yellow) Urine Clarity Clear (Clear) Urine pH 7.0 (5.0-9.0) Urine Specific [place] 1.017 (1.001-1.035) Urine Protein 1+ (Negative) Urine Ketones Negative (Negative) Urine Blood 2+ /uL (Negative) Urine Nitrite Negative (Negative) Urine Bilirubin Negative (Negative) Urine Urobilinogen Normal mg/dL (Negative) Urine Leukocyte Esterase Negative /uL (Negative) Urine RBC 1 /hpf (0 - 3) Urine Microscopic WBC 1 /HPF (0-3) Urine Squamous Epithelial Cells Few /hpf (<5) Urine Bacteria None seen /hpf (None Seen) Urine Glucose Normal mg/dL (Normal) Platelet Estimate Decreased Test 11/20/24 15:40 11/20/24 05:59 11/19/24 22:33 11/19/24 20:10 Influenza Type A Antigen Negative (Negative) Influenza Type B Antigen Negative (Negative) SARS-CoV-2 Antigen (Rapid) Negative (NEGATIVE) Differential Total Cells Counted 100.0 (100) Neutrophils % (Manual) 71 (37.0-80.0) Band Neutrophils % (Manual) 12 Lymphocytes % (Manual) 11 (10.0-50.0) Monocytes % (Manual) 6 (0-12) Eosinophils % (Manual) 0 (0-7) Basophils % (Manual) 0 (0.0-2.0) Metamyelocytes % (manual) 0 Myelocytes % (Manual) 0 Promyelocytes % (Manual) 0 Blast Cells % (Manual) 0 Reactive Lymphocytes 0 Hepatitis B Surface Antigen Negative (Negative) Lactic Acid Level 2.0 mmol/L (0.4-2.0) Magnesium Level 2.5 mg/dL (1.6-2.6) Lipase 24 U/L (12-53) Other Laboratory Tests 11/22/24 07:03 Brief Hx & Hospital Course: 69-year-old male with ESRD on hemodialysis hypertension obesity hard of hearing brought in to the ER for altered mental status and confusion. Found to have sepsis secondary to cellulitis of the right side of the face. Maxillofacial CT negative for any fracture or osteomyelitis patient was started on broad-spectrum antibiotics Zosyn blood cultures negative urine cultures negative flu test negative COVID test negative patient has received hemodialysis by Dr. Morales the gives the history the patient was found lying on the floor and she thought he might have fallen. CT head is negative. White count came back to normal patient is more alert and awake oriented x3 The requested for transfer to [place] yesterday, today I talked to her on the phone and advised the negative findings of CT and white count coming down and she agreed patient to be discharged home on antibiotics and pain meds. He will follow up with his [place] Dr and Dr. Morales for dialysis prescription for Augmentin and tramadol transmitted to the [place] pharmacy. Consults/Reason for consult Nephrology Operations or Procedures Hemodialysis CT head Maxillofacial CT Condition at Discharge: Fair Final Diagnosis/Problems List Sepsis secondary to cellulitis right side of the face: Maxillofacial CT negative for any fracture or osteomyelitis, Continue Zosyn: Blood cultures negative, flu test negative, COVID test negative, continue Zosyn Blood cultures came negative urine cultures came negative ESRD on hemodialysis: Consult by Dr. Morales appreciated, patient getting dialysis today Acute hyperkalemia secondary to ESRD Hypertension Obesity History of fall at home CT head negative Moderate malnutrition Hard of hearing Discharge Disposition: Home Discharge Instruct/Medications Diet: Renal Activity: Light activity Follow Up/Referral: Follow up with your primary Dr at [place] Follow up with the mess attendant crew Dr. Morales for regular dialysis Friday Resume previous home medications Medications: Augmentin Tramadol Transmitted to [place] pharmacy 39 (Time taken for discharge summary 39 minutes) Discharge Statement: "Patient was advised to return to the ER or call 911 if any headaches, dizziness, shortness of breath, chest pain, abdominal pain, bleeding, fevers, or worsening of medical condition. Patient was counseled about treatment plan, medications, possible side effects, patientverbalized understanding. All questions were answered to the best of my ability. This discharge took greater then 30 minutes in planning, reviewing documentation, counseling the patient, and discussing with other team members." ASSESSMENT ASSESSMENT Hospital Course Improved Assessment Sepsis secondary to cellulitis right side of the face: Maxillofacial CT negative for any fracture or osteomyelitis, Continue Zosyn: Blood cultures negative, flu test negative, COVID test negative, continue Zosyn Blood cultures came negative urine cultures came negative ESRD on hemodialysis: Consult by Dr. Carmen howe, patient getting dialysis today Acute hyperkalemia secondary to ESRD Hypertension Obesity History of fall at home CT head negative Moderate malnutrition Hard of hearing Date of Service: Nov 23, 2024 Billing Provider: STALIN MIGUEL MD Common Visit Codes: 43663-OKV/OBS DISCH DAY >30min STALIN MIGUEL MD Nov 23, 2024 08:30
[2024-11-23 08:39] LABS: Basophils # (auto) 0.1 10 ^3/uL (0-0.2); Basophils % (auto) 0.6 % (0.0-2.0); Eosinophils # (auto) 0.1 10 ^3/uL (0-0.8); Eosinophils % (auto) 1.6 % (0.0-7.0); Hemoglobin 10.8 g/dL (13.5-17.5); Lymphocytes % (auto) 12.4 % (10.0-50.0); Mean Corpuscular Hgb Conc. 33.9 g/dL (32.0-36.0); Mean Corpuscular Volume 97.6 fL (80.0-100.0); Monocytes # (auto) 0.7 10 ^3/uL (0-1.3); Monocytes % (auto) 8.1 % (0.0-12.0); Neutrophils # (auto) 6.2 10 ^3/uL (1.6-8.6); Neutrophils % (auto) 77.3 % (37.0-80.0); Platelet Count (auto) 120 10^3/uL (140-450); Red Blood Cells 3.28 10^6/uL (4.5-5.90); Red Cell Distribution Width 15.4 % (11.8-14.3); White Blood Cell 8.1 10^3/uL (4.4-10.8)
[2024-11-23 08:55] VITALS: BP 148/81; PULSE 86; RESP 20; TEMP 98.8; O2SAT 96
[2024-11-23 09:00] LABS: Alanine Aminotransferase 33 U/L (7-40); Albumin 3.8 g/dL (3.2-4.8); Alkaline Phosphatase 61 U/L (46-116); Anion Gap 15 (5-15); BUN/Creatinine Ratio 8.5 (10.0-20.0); Calcium 9.6 mg/dL (8.7-10.4); Carbon Dioxide 28 mmol/L (20-31); Potassium 4.9 mmol/L (3.5-5.1); Total Protein 6.7 g/dL (5.7-8.2)
[2024-11-23 09:01] LABS: Bilirubin, Total 0.5 mg/dL (0.2-1.0)
[2024-11-23 09:03] LABS: Aspartate Aminotransferase 43 U/L (13-40); Blood Urea Nitrogen 79 mg/dL (9-23); Chloride 90 mmol/L (98-107); Glucose 197 mg/dL (74-106); Sodium 133 mmol/L (136-145)
[2024-11-23 13:00] VITALS: BP 140/80; PULSE 88; RESP 20; TEMP 98.5; O2SAT 93
--- NOTE | 2024-11-23 14:00 | DVHPN2 ---
Progress Note - Dictate Date Seen: Nov 23, 2024 Has the PT tested + for MRSA If YES, has PT been informed?: No Medical Necessity Reason Pt with a Central, PICC or Fol: No Subjective no new symptoms vital signs Vital Sign Date Time Temp Pulse Resp B/P (MAP) Pulse Ox O2 Delivery O2 Flow Rate FiO2 11/23/24 08:55 98.8 86 20 148/81 (103) 96 98.8 11/23/24 08:00 Nasal Cannula* 2 28 Total Intake and Output 11/22/24 11/22/24 11/23/24 15:00 23:00 07:00 Intake Total 1000 ml 500 ml Balance 1000 ml 500 ml medications Current Medications Medications Dose Ordered Sig/Carmela Route Start Time Stop Time Status Last Admin Dose Admin Lorazepam 0.5 mg Q6HP PRN PO 11/20/24 01:00 11/21/24 21:59 0.5 MG Al Hydrox/Mg Hydrox/Simethicone 30 ml Q6HP PRN PO 11/20/24 01:00 Docusate Sodium 100 mg BIDPRN PRN PO 11/20/24 01:00 11/21/24 21:59 100 MG Acetaminophen 650 mg Q6HP PRN PO 11/20/24 01:00 11/22/24 00:45 650 MG Temazepam 15 mg QHSP PRN PO 11/20/24 01:00 Ondansetron HCl 4 mg Q4HP PRN IV 11/20/24 01:00 Morphine Sulfate 1 mg Q4HPRN PRN IV 11/20/24 01:00 11/22/24 16:32 1 MG Diagnostic Test (Pha) 1 strip ACHS 11/20/24 07:00 11/23/24 11:25 1 STRIP Insulin Human Regular HS SC 11/20/24 22:00 11/22/24 22:02 4 UNITS Insulin Human Regular AC SC 11/20/24 07:00 11/23/24 11:25 3 UNITS Dextrose 50 ml UD PRN IV 11/20/24 01:00 Piperacillin Sod/ Tazobactam Sod 100 ml @ 100 mls/hr Q8HR IV 11/20/24 06:00 UNV Piperacillin Sod/ Tazobactam Sod 50 ml @ 100 mls/hr Q8HR IV 11/20/24 14:00 11/23/24 06:05 100 MLS/HR objective Alert and oriented x 3 NAD Lungs: CTA bilaterally CV: RR, no pericardial rub Abdomen: soft, non tender to palpatin, normal bowel sounds No leg edema' Neuro: WNL laboratory and microbiology Laboratory Tests 11/23/24 08:31 Test 11/23/24 08:31 Range/Units Serum Glucose 197 H 74-106 mg/dL Assessment/Plan Assessment: 1. ESRD on HD 2. Sepsis secondary to cellulitis right side of the face: Maxillofacial CT negative for any fracture, 3. Hyperkalemia resolved 4. Hypertension 5. Obesity Plan: Continue HD on MWF schedule s/p HD Friday Next HD on Friday if still in house Antibiotics per primary team Dietary Evaluation Review Comments: 1) Continue stool softeners and laxatives PRN 2) Encourage optimal PO intake 3) Collect HbA1c 4) Refer to outpatient RD/[facility] for weight management 5) Continue to monitor I&O, labs, and skin integrity Expected Outcomes/Goals: 1) appetite and labs to improve 2) GI symptoms to resolve 3) f/u in 3-5 days Plan discussed with: Patient DAPHNEY RABAGO MD Nov 23, 2024 14:00
[2024-11-23 17:00] VITALS: BP 144/82; PULSE 83; RESP 22; TEMP 98.6; O2SAT 94
== END 2024-11-23 18:00 | disposition home or self-care (01) | DRG 871 ==
LOC: ER 19:25 → EDBD 19:25 → OVERFLOW 11-20 00:47 → TELE-CENTR 11-20 13:26
PROVIDERS: ADMIT Family Medicine; ATTEND Family Medicine
PROC: 5A1D70Z Performance of Urinary Filtration, Intermittent, Less than 6 Hours Per Day (ICD-10-PCS; principal; 2024-11-20)
DX: A41.9 Sepsis, unspecified organism (principal); N18.6 End stage renal disease; E44.0 Moderate protein-calorie malnutrition; I12.0 Hypertensive chronic kidney disease with stage 5 chronic kidney disease or end stage renal disease; L03.211 Cellulitis of face; Z68.41 Body mass index [BMI] 40.0-44.9, adult; Z20.822 Contact with and (suspected) exposure to COVID-19; E11.22 Type 2 diabetes mellitus with diabetic chronic kidney disease; E66.9 Obesity, unspecified; E87.5 Hyperkalemia; Z99.2 Dependence on renal dialysis; Z79.899 Other long term (current) drug therapy
CPT/HCPCS: 36415; 70450; 70486; 71045; 80048; 80053; 81001; 82962; 83605; 83690; 83735; 85007; 85025; 85027; 87040; 87086; 87340; 87426; 87804; 90935; 96365; 99291; G0378; J1642; J1815; J2543